=== PATIENT | female | born 1950 | race Caucasian/White ===

== ENCOUNTER → 2018-02-16 | Outpatient (CLI) | payer MEDICARE ==
--- NOTE | 2018-02-16 14:45 | US ---
EXAMINATION TYPE: US thyroid st tissue head/neck DATE OF EXAM: 02/16/2018 COMPARISON: NONE CLINICAL HISTORY: E07.9 Disorder of thyroid, unspecified. GLAND SIZE: Right Lobe: 3.7 x 1.2 x 1.5 cm Overall Parenchyma: homogenous Left Lobe: 3.8 x 1.1 x 1. 0 cm Overall Parenchyma: homogeneous Isthmus Thickness: 0.4 cm NODULES RIGHT: # of nodules measured on right: 1 1. 0.4 X 0.3 x 0.5 cm echogenic solid nodule at the lower pole with well-defined margins; . This n odule is wider than tall and shows no intranodular vascularity. Prior size: no prior LEFT: # of nodules measured on left: 0 ISTHMUS: # of nodules measured in the isthmus: 0 Bilateral neck scanned, no evidence of lymphadenopathy. IMPRESSION: No discrete thyroid abnormality. Small subcentimeter nodule is within the right lobe thyroid posterio rly
== END | disposition home or self-care (01) ==
LOC: RADUSWWP 13:55
PROVIDERS: ATTEND General Practice
DX: E04.1 Nontoxic single thyroid nodule (principal)
CPT/HCPCS: 76536

== ENCOUNTER → 2018-04-06 | Outpatient (CLI) | payer MEDICARE ==
[2018-04-06 15:24] LABS: C Reactive Protein 7.8 mg/L (<10.0); Uric Acid 5.3 mg/dL (3.7-7.4)
[2018-04-07 04:33] LABS: Angiotensin-1 Converting Enz. 24 U/L (8-52)
[2018-04-07 14:58] LABS: C-ANCA <1:20 Titer (<1:20); P-ANCA <1:20 Titer (<1:20)
== END | disposition home or self-care (01) ==
LOC: LABWHC1 14:38
PROVIDERS: ATTEND Internal Medicine Infectious Disease
DX: M25.50 Pain in unspecified joint (principal); Z88.0 Allergy status to penicillin; Z88.2 Allergy status to sulfonamides; Z88.1 Allergy status to other antibiotic agents
CPT/HCPCS: 36415; 82164; 84550; 86140; 86255; 86431

== ENCOUNTER → 2019-04-10 | Outpatient (CLI) | payer MEDICARE ==
--- NOTE | 2019-04-10 15:24 | US ---
EXAMINATION TYPE: US thyroid st tissue head/neck DATE OF EXAM: 04/10/2019 COMPARISON: NONE CLINICAL HISTORY: E04.1 Nontoxic single thyroid nodule. Thyroid nodule GLAND SIZE: Right Lobe: 3.8 x 1.4 x 1.5 cm Overall Parenchyma: homogenous Left Lobe: 4.5 x 1.1 x 1.0 cm Overall Parenchyma: homogeneous Isthmus Thickness: 0.52 cm NODULES RIGHT: # of nodules measured on right: 1 1. .4 X .5 x .4 cm echogenic solid nodule at the lower pole with well-defined margins; . This nodu le is taller than wide and shows no intranodular vascularity. Prior size: .4 x x .3 x .5 cm LEFT: # of nodules measured on left: 0 ISTHMUS: # of nodules measured in the isthmus: 0 Bilateral neck scanned, no evidence of lymphadenopathy. IMPRESSION: Stable subcentimeter right thyroid nodule measuring up to 5 mm, likely benign. No new nodules are see n.
== END | disposition home or self-care (01) ==
LOC: RADUSWWP 13:52
PROVIDERS: ATTEND General Practice
DX: E04.1 Nontoxic single thyroid nodule (principal)
CPT/HCPCS: 76536

== ENCOUNTER → 2021-06-27 | Outpatient (CLI) | payer MEDICARE ==
[2021-06-27 16:07] LABS: HCT 41.2 % (37.2-46.3); HGB 13.1 g/dL (12.0-15.0); MCH 29.8 pg (27.0-32.0); MCHC 31.8 g/dL (32.0-37.0); MCV 93.8 fL (80.0-97.0); Mean Platelet Volume 10.3 fL (9.5-12.2); Platelet Count 271 X 10*3/uL (140-440); RBC 4.39 X 10*6/uL (4.10-5.20); RDW 13.2 % (11.5-14.5); WBC 6.78 X 10*3/uL (4.50-10.00)
[2021-06-27 18:30] LABS: Albumin 4.3 g/dL (3.8-4.9); Albumin/Globulin Ratio 1.68 (1.60-3.17); Anion Gap 11.7 mmol/L (4.00-12.00); BUN/Creat Ratio 16.36 Ratio (12.00-20.00); Blood Urea Nitrogen 10.7 mg/dL (9.0-27.0); Calcium 9.4 mg/dL (8.7-10.3); Carbon Dioxide 23.4 mmol/L (21.6-31.8); Chol/HDL Ratio 4.7 Ratio; Globulin 2.5 g/dL (1.6-3.3); HDL Cholesterol 59.1 mg/dL (40.00-60.00); LDL Cholesterol,Calculated 197.3 mg/dL (0.0-131.0); Non-African American GFR(CKD) 89.8 (60.0-200.0); Potassium 4.2 mmol/L (3.5-5.5); Total Bilirubin 0.7 mg/dL (0.30-1.20); Total Protein 6.8 g/dL (6.2-8.2); VLDL Calculation 21.6 mg/dL (5.00-40.00)
== END | disposition home or self-care (01) ==
LOC: LABWHC1 10:26
PROVIDERS: ATTEND General Practice
DX: I10 Essential (primary) hypertension (principal); E78.5 Hyperlipidemia, unspecified; R53.83 Other fatigue
CPT/HCPCS: 36415; 80053; 80061; 84443; 85027